=== PATIENT | male | born 1965 | race Two or more races ===

== ENCOUNTER 2019-08-05 12:56 | Outpatient (CLI) | payer OTHER ==
[~2019-08-05 12:56] MED LIST: AMOX1TAB5 PO; COZAAR25 MG; SYNTHROID50 MCG; ULTRACET PO; ZANTAC300 MG PO
== END 2019-08-05 14:58 | disposition home or self-care (01) ==
LOC: TOM 12:56
DX: R41.2 Retrograde amnesia (principal); R51 Headache; J44.9 Chronic obstructive pulmonary disease, unspecified